=== PATIENT | female | born 1935 | race Two or more races ===

== ENCOUNTER 2020-06-29 11:58 | Inpatient (IN) | payer OTHER ==
[~2020-06-29] VITALS: Ht 170.2 cm; Wt 59.0 kg
[2020-06-29] MEDS ORDERED: VANCOMYCIN 1 G PREMIX 200 ML IV ONE (12:30)
[2020-06-29] MEDS ORDERED: CEFTRIAXONE 1 G PREMIX 50 ML IV ONE (12:30)
[2020-06-29] MEDS ORDERED: SODIUM CHLORIDE 0.9% 1000ML BAG (SEPSIS BOLUS) IV ONE (12:30)
[2020-06-29] MEDS ORDERED: ONDANSETRON HCL 4MG/2ML INJ IV STA (12:40)
[2020-06-29] MEDS ORDERED: MORPHINE SULFATE 4 MG/ML CPJ (NOT FOR IM USE) IV STA (12:40)
[2020-06-29 14:41] LABS: HEMATOCRIT. 53.3 % (36.0-48.0); HEMOGLOBIN. 16.9 g/dL (12.0-16.0); MEAN CORPUSCULAR HEMOGLOBIN 29.7 pg (28.0-32.0); MEAN CORPUSCULAR VOLUME 93.5 fL (81.0-99.0); MEAN PLATELET VOLUME 8.7 fl (7.4-10.4); PLATELET 176 x1000/uL (130-400); RED CELL DISTRIBUTION WIDTH 15.1 % (11.6-14.6)
[2020-06-29 14:47] LABS: CHLORIDE 124 mEq/L (98-107)
[2020-06-29 14:49] LABS: INR 1.3; PARTIAL THROMBOPLASTIN TIME 23.7 sec (23.4-31.0); PROTHROMBIN TIME 13.3 sec (9.6-11.0)
[2020-06-29 16:48] LABS: PLATELET ESTIMATE NORMAL
[2020-06-29 17:18] LABS: CLARITY URINE CLEAR (CLEAR); COLOR URINE DARK YELLOW (YELLOW); KETONES URINE NEGATIVE (NEGATIVE); LEUKOCYTE ESTERASE URINE NEGATIVE (NEGATIVE); NITRITE URINE NEGATIVE (NEGATIVE); OCCULT BLOOD URINE TRACE (NEGATIVE); PROTEIN URINE TRACE (NEGATIVE); SPECIFIC GRAVITY URINE 1.023 (1.005-1.030)
[2020-06-29 18:17] LABS: CREATINE KINASE 408 IU/L (26-192)
[2020-06-29] MEDS ORDERED: MORPHINE SULFATE 4 MG/ML CPJ (NOT FOR IM USE) IV PRN (23:00)
[2020-06-29] MEDS ORDERED: DIPHENHYDRAMINE 50MG/ML VIAL IV PRN (23:00)
[2020-06-29] MEDS ORDERED: IPRATROPIUM/ALBUTEROL 0.5-3(2.5)MG/3ML NEB HHN PRN (23:00)
[2020-06-29] MEDS ORDERED: GUAIFENESIN 200MG/10ML SUGAR FREE UDC PO PRN (23:00)
[2020-06-29] MEDS ORDERED: ACETAMINOPHEN 325MG TABLET PO PRN (23:00)
[2020-06-29] MEDS ORDERED: ONDANSETRON HCL 4MG/2ML INJ IV PRN (23:00)
[2020-06-30] MEDS ORDERED: DEXT 5% WATER + KCL 40MEQ/L 1,000 ML IV SCH
[2020-06-30] MEDS ORDERED: VANCOMYCIN 1 G PREMIX 200 ML IV NR
[2020-06-30] MEDS: DEXT 5%/0.45% NACL KCL 40MEQ/L 1,000 ML IV SCH ×3 (02:39→21:00)
[2020-06-30] MEDS: PIPERACILLIN/TAZOBACTAM 2.25 G in DEXTROSE 5% WATER 50 ML IV SCH ×2 (02:40→06:28)
[2020-06-30] MEDS: ENOXAPARIN 30MG/0.3ML SYR SUBCUT SCH (02:40)
[2020-06-30] MEDS ORDERED: FAMOTIDINE 20MG TABLET PO SCH (09:00)
[2020-06-30 11:47] LABS: HEMATOCRIT. 47.1 % (36.0-48.0); HEMOGLOBIN. 15.2 g/dL (12.0-16.0); MEAN CORPUSCULAR HEMOGLOBIN 30.2 pg (28.0-32.0); MEAN CORPUSCULAR VOLUME 93.5 fL (81.0-99.0); MEAN PLATELET VOLUME 8.7 fl (7.4-10.4); PLATELET 145 x1000/uL (130-400); RED BLOOD CELL COUNT 5.04 mill/uL (4.2-5.4)
[2020-06-30 11:53] LABS: CHLORIDE 133 mEq/L (98-107)
[2020-06-30 11:59] LABS: PHOSPHORUS 2.4 mg/dL (2.5-4.9)
[2020-06-30] MEDS ORDERED: PIPERACILLIN/TAZOBACTAM 2.25 G in DEXTROSE 5% WATER 50 ML IV SCH (12:00)
[2020-06-30 13:00] LABS: PLATELET ESTIMATE NORMAL
[2020-06-30] MEDS ORDERED: VANCOMYCIN 750 MG PREMIX 150 ML IV SCH ×2 (16:00)
[2020-06-30] MEDS ORDERED: CEFEPIME 1,000 MG in DEXTROSE 5% WATER 50 ML IV SCH (20:00)
[2020-06-30] MEDS ORDERED: METRONIDAZOLE 500 MG PREMIX 100 ML IV SCH (20:00)
[2020-07-01] VITALS (7 sets, daily range): BP systolic 105–164; BP diastolic 63–84
[2020-07-01] MEDS: ENOXAPARIN 30MG/0.3ML SYR SUBCUT SCH (01:16)
[2020-07-01 01:56] LABS: CREATINE KINASE 335 IU/L (26-192)
[2020-07-01] MEDS: METRONIDAZOLE 500 MG PREMIX 100 ML IV SCH ×3 (05:51→22:39)
[2020-07-01 10:22] LABS: BASOPHILS % 0.4 % (0.0-2.0); EOSINOPHILS % 1.5 % (0.0-5.0); HEMATOCRIT. 43.7 % (36.0-48.0); HEMOGLOBIN. 13.9 g/dL (12.0-16.0); LYMPHOCYTES % 11.9 % (20.0-50.0); MEAN CORPUSCULAR HEMOGLOBIN 29.8 pg (28.0-32.0); MEAN CORPUSCULAR VOLUME 93.4 fL (81.0-99.0); MEAN PLATELET VOLUME 9.5 fl (7.4-10.4); MONOCYTES % 4.9 % (2.0-8.0); NEUTROPHILS % 81.3 % (40.0-76.0); PLATELET 139 x1000/uL (130-400); RED BLOOD CELL COUNT 4.68 mill/uL (4.2-5.4); RED CELL DISTRIBUTION WIDTH 14.9 % (11.6-14.6)
[2020-07-01 10:35] LABS: CHLORIDE 131 mEq/L (98-107)
[2020-07-01 10:41] LABS: PHOSPHORUS 1.7 mg/dL (2.5-4.9)
[2020-07-01] MEDS: FAMOTIDINE 20MG TABLET PO SCH (12:26)
[2020-07-01] MEDS: DEXT 5%/0.45% NACL KCL 40MEQ/L 1,000 ML IV SCH ×3 (13:00→21:00)
[2020-07-01] MEDS ORDERED: POTASSIUM CHLORIDE 20MEQ TABLET SR PO NR (15:24)
[2020-07-01] MEDS ORDERED: VANCOMYCIN 750 MG PREMIX 150 ML IV SCH (16:00)
[2020-07-01] MEDS: CEFEPIME 1,000 MG in DEXTROSE 5% WATER 50 ML IV SCH (22:39)
[2020-07-02] VITALS: BP 132/59
[2020-07-02] MEDS: ENOXAPARIN 30MG/0.3ML SYR SUBCUT SCH (03:11)
[2020-07-02 04:00] VITALS: BP 145/98
[2020-07-02] MEDS: METRONIDAZOLE 500 MG PREMIX 100 ML IV SCH ×3 (05:12→22:32)
[2020-07-02] MEDS: DEXT 5%/0.45% NACL KCL 40MEQ/L 1,000 ML IV SCH ×3 (05:12→21:10)
[2020-07-02 08:00] VITALS: BP 164/91
[2020-07-02] MEDS: FAMOTIDINE 20MG TABLET PO SCH (09:13)
[2020-07-02] MEDS: CLONIDINE 0.1MG TABLET PO PRN (09:14)
[2020-07-02 12:00] VITALS: BP 158/68
[2020-07-02] MEDS: VANCOMYCIN 750 MG PREMIX 150 ML IV SCH (13:35)
[2020-07-02 16:00] VITALS: BP 98/71
[2020-07-02 20:00] VITALS: BP 129/79
[2020-07-02] MEDS: CEFEPIME 1,000 MG in DEXTROSE 5% WATER 50 ML IV SCH (21:12)
[2020-07-03] VITALS: BP 124/71
[2020-07-03] MEDS: ENOXAPARIN 30MG/0.3ML SYR SUBCUT SCH (00:21)
[2020-07-03 04:00] VITALS: BP 154/78
[2020-07-03] MEDS: DEXT 5%/0.45% NACL KCL 40MEQ/L 1,000 ML IV SCH ×2 (05:17→13:18)
[2020-07-03] MEDS: METRONIDAZOLE 500 MG PREMIX 100 ML IV SCH ×3 (05:18→21:23)
[2020-07-03] MEDS: VANCOMYCIN 750 MG PREMIX 150 ML IV SCH (05:18)
[2020-07-03 08:13] VITALS: BP 169/78
[2020-07-03] MEDS: FAMOTIDINE 20MG TABLET PO SCH (08:57)
[2020-07-03] MEDS: CLONIDINE 0.1MG TABLET PO PRN (08:57)
[2020-07-03 12:24] VITALS: BP 156/62
[2020-07-03] MEDS: DEXT 5% WATER + KCL 20MEQ/L 1,000 ML IV SCH (15:36)
[2020-07-03 16:00] VITALS: BP 146/66
[2020-07-03 17:46] LABS: HEMATOCRIT 39.5 % (36.0-48.0); MEAN CORPUSCULAR HEMOGLOBIN 30.5 pg (28.0-32.0); PLATELET 121 x1000/uL (130-400); RED BLOOD CELL COUNT 4.25 mill/uL (4.2-5.4); RED CELL DISTRIBUTION WIDTH 14.8 % (11.6-14.6)
[2020-07-03 19:58] VITALS: BP 143/63
[2020-07-03] MEDS: CEFEPIME 1,000 MG in DEXTROSE 5% WATER 50 ML IV SCH (20:31)
[2020-07-04] VITALS (7 sets, daily range): BP systolic 145–185; BP diastolic 27–82
[2020-07-04] MEDS: ENOXAPARIN 30MG/0.3ML SYR SUBCUT SCH ×2 (00:33→21:38)
[2020-07-04] MEDS: VANCOMYCIN 750 MG PREMIX 150 ML IV SCH ×2 (00:33→18:28)
[2020-07-04] MEDS: DEXT 5% WATER + KCL 20MEQ/L 1,000 ML IV SCH ×3 (03:48→14:34)
[2020-07-04] MEDS: METRONIDAZOLE 500 MG PREMIX 100 ML IV SCH ×3 (06:13→21:38)
[2020-07-04 07:00] LABS: BASOPHILS % 0.2 % (0.0-2.0); EOSINOPHILS % 2.9 % (0.0-5.0); HEMATOCRIT. 39.3 % (36.0-48.0); HEMOGLOBIN. 13.3 g/dL (12.0-16.0); LYMPHOCYTES % 10.7 % (20.0-50.0); MEAN CORPUSCULAR HEMOGLOBIN 31.1 pg (28.0-32.0); MEAN PLATELET VOLUME 8.9 fl (7.4-10.4); MONOCYTES % 5.5 % (2.0-8.0); NEUTROPHILS % 80.7 % (40.0-76.0); PLATELET 109 x1000/uL (130-400); RED BLOOD CELL COUNT 4.27 mill/uL (4.2-5.4); RED CELL DISTRIBUTION WIDTH 14.1 % (11.6-14.6)
[2020-07-04 07:14] LABS: CHLORIDE 116 mEq/L (98-107)
[2020-07-04] MEDS: FAMOTIDINE 20MG TABLET PO SCH (09:33)
[2020-07-04] MEDS ORDERED: LIDOCAINE HCL/EPINEPHRINE 1%-EPI 1:100,000 20 ML VIAL INFIL NR (15:30)
[2020-07-04] MEDS: SODIUM HYPOCHLORITE 0.125% 473ML SOLUTION TOP SCH (16:00)
[2020-07-04] MEDS: CLONIDINE 0.1MG TABLET PO PRN (16:33)
[2020-07-04 19:36] LABS: CLARITY URINE CLEAR (CLEAR); COLOR URINE YELLOW (YELLOW); KETONES URINE NEGATIVE (NEGATIVE); LEUKOCYTE ESTERASE URINE TRACE (NEGATIVE); NITRITE URINE NEGATIVE (NEGATIVE); OCCULT BLOOD URINE 2+ (NEGATIVE); PH URINE 5.5 (4.5-8.0); PROTEIN URINE TRACE (NEGATIVE); UROBILINOGEN URINE 0.2 E.U./dL (0.2-1.0)
[2020-07-04] MEDS: CEFEPIME 1,000 MG in DEXTROSE 5% WATER 50 ML IV SCH (21:38)
[2020-07-05] VITALS: BP 149/60
[2020-07-05] MEDS: CLONIDINE 0.1MG TABLET PO PRN (00:39)
[2020-07-05 04:00] VITALS: BP 145/71
[2020-07-05] MEDS: METRONIDAZOLE 500 MG PREMIX 100 ML IV SCH ×3 (06:06→22:34)
[2020-07-05 07:20] LABS: BASOPHILS % 0.4 % (0.0-2.0); EOSINOPHILS % 2.7 % (0.0-5.0); HEMATOCRIT. 37.4 % (36.0-48.0); HEMOGLOBIN. 12.7 g/dL (12.0-16.0); MEAN CORPUSCULAR HEMOGLOBIN 30.8 pg (28.0-32.0); MEAN PLATELET VOLUME 8.6 fl (7.4-10.4); MONOCYTES % 6.9 % (2.0-8.0); PLATELET 115 x1000/uL (130-400); RED BLOOD CELL COUNT 4.11 mill/uL (4.2-5.4); RED CELL DISTRIBUTION WIDTH 14.3 % (11.6-14.6)
[2020-07-05 07:34] LABS: CHLORIDE 115 mEq/L (98-107)
[2020-07-05 08:00] VITALS: BP 150/72
[2020-07-05] MEDS: SODIUM HYPOCHLORITE 0.125% 473ML SOLUTION TOP SCH (09:00)
[2020-07-05] MEDS: FAMOTIDINE 20MG TABLET PO SCH (09:13)
[2020-07-05 12:00] VITALS: BP 152/80
[2020-07-05] MEDS: VANCOMYCIN 1 G PREMIX 200 ML IV SCH (12:50)
[2020-07-05 16:00] VITALS: BP 158/82
[2020-07-05 20:00] VITALS: BP 141/91
[2020-07-05] MEDS: CEFEPIME 1,000 MG in DEXTROSE 5% WATER 50 ML IV SCH (20:45)
[2020-07-05] MEDS: ENOXAPARIN 30MG/0.3ML SYR SUBCUT SCH (20:45)
[2020-07-05] MEDS: LORAZEPAM 2MG/ML CPJ IV PRN (21:39)
[2020-07-06] VITALS: BP 149/72
[2020-07-06 04:00] VITALS: BP 158/80
[2020-07-06] MEDS: VANCOMYCIN 1 G PREMIX 200 ML IV SCH ×2 (05:19→23:37)
[2020-07-06 08:00] VITALS: BP 186/82
[2020-07-06] MEDS: FAMOTIDINE 20MG TABLET PO SCH (08:30)
[2020-07-06] MEDS: ACETAMINOPHEN 325MG TABLET PO PRN (08:31)
[2020-07-06] MEDS: SODIUM HYPOCHLORITE 0.125% 473ML SOLUTION TOP SCH (09:00)
[2020-07-06 12:00] VITALS: BP 180/75
[2020-07-06 16:00] VITALS: BP 165/80
[2020-07-06] MEDS: CLONIDINE 0.1MG TABLET PO PRN (17:12)
[2020-07-06 20:00] VITALS: BP 169/75
[2020-07-06] MEDS: ENOXAPARIN 30MG/0.3ML SYR SUBCUT SCH (20:28)
[2020-07-06] MEDS: METOPROLOL TARTRATE 25MG TABLET PO SCH (20:28)
[2020-07-06] MEDS: LORAZEPAM 2MG/ML CPJ IV PRN (20:28)
[2020-07-07] VITALS: BP 101/47
[2020-07-07 04:00] VITALS: BP 176/70
[2020-07-07 07:53] LABS: BASOPHILS % 0.4 % (0.0-2.0); EOSINOPHILS % 3.5 % (0.0-5.0); HEMATOCRIT. 37.3 % (36.0-48.0); HEMOGLOBIN. 12.4 g/dL (12.0-16.0); LYMPHOCYTES % 12.7 % (20.0-50.0); MEAN CORPUSCULAR HEMOGLOBIN 30.3 pg (28.0-32.0); MEAN CORPUSCULAR VOLUME 91.1 fL (81.0-99.0); MEAN PLATELET VOLUME 8.9 fl (7.4-10.4); MONOCYTES % 7.4 % (2.0-8.0); PLATELET 151 x1000/uL (130-400); RED CELL DISTRIBUTION WIDTH 14.6 % (11.6-14.6)
[2020-07-07 08:00] VITALS: BP 154/72
[2020-07-07 08:23] LABS: CHLORIDE 115 mEq/L (98-107)
[2020-07-07 08:29] LABS: PHOSPHORUS 2.1 mg/dL (2.5-4.9)
[2020-07-07] MEDS: SODIUM HYPOCHLORITE 0.125% 473ML SOLUTION TOP SCH (09:17)
[2020-07-07] MEDS: FAMOTIDINE 20MG TABLET PO SCH (09:17)
[2020-07-07] MEDS: METOPROLOL TARTRATE 25MG TABLET PO SCH (09:20)
[2020-07-07] MEDS: ACETAMINOPHEN 325MG TABLET PO PRN (11:15)
[2020-07-07 12:00] VITALS: BP 176/79
[2020-07-07] MEDS ORDERED: MAGNESIUM 2 G PREMIX 50 ML IV NR (12:00)
[2020-07-07 16:00] VITALS: BP 173/59
[2020-07-07] MEDS ORDERED: POTASSIUM PHOS,M-BASIC-D-BASIC 30 MMOL in DEXT 5% WATER 500 ML IV NR (16:30)
[2020-07-07] MEDS: VANCOMYCIN 1 G PREMIX 200 ML IV SCH (18:15)
[2020-07-07 20:00] VITALS: BP 175/66
[2020-07-07] MEDS: ENOXAPARIN 30MG/0.3ML SYR SUBCUT SCH (21:22)
[2020-07-07] MEDS: METOPROLOL TARTRATE 50MG TABLET PO SCH (21:23)
[2020-07-08] VITALS: BP 189/77
[2020-07-08 04:00] VITALS: BP 189/79
[2020-07-08 08:00] VITALS: BP 183/77
[2020-07-08] MEDS: METOPROLOL TARTRATE 50MG TABLET PO SCH ×2 (09:25→22:52)
[2020-07-08] MEDS: FAMOTIDINE 20MG TABLET PO SCH (09:25)
[2020-07-08] MEDS: SODIUM HYPOCHLORITE 0.125% 473ML SOLUTION TOP SCH (09:26)
[2020-07-08] MEDS: VANCOMYCIN 1 G PREMIX 200 ML IV SCH ×2 (11:54→12:00)
[2020-07-08 12:00] VITALS: BP 166/74
[2020-07-08] MEDS: AMLODIPINE 2.5MG TABLET PO SCH (12:48)
[2020-07-08 16:00] VITALS: BP 173/110
[2020-07-08 17:26] LABS: CHLORIDE 109 mEq/L (98-107)
[2020-07-08] MEDS: CLONIDINE 0.1MG TABLET PO PRN (18:26)
[2020-07-08 20:00] VITALS: BP 127/58
[2020-07-08] MEDS: ENOXAPARIN 30MG/0.3ML SYR SUBCUT SCH (22:53)
[2020-07-09] VITALS: BP 162/69
[2020-07-09 04:00] VITALS: BP 155/71
[2020-07-09 07:30] LABS: BASOPHILS % 0.7 % (0.0-2.0); EOSINOPHILS % 3.7 % (0.0-5.0); HEMATOCRIT. 36.5 % (36.0-48.0); HEMOGLOBIN. 12.2 g/dL (12.0-16.0); LYMPHOCYTES % 18.8 % (20.0-50.0); MEAN CORPUSCULAR HEMOGLOBIN 30.4 pg (28.0-32.0); MEAN CORPUSCULAR VOLUME 90.8 fL (81.0-99.0); MEAN PLATELET VOLUME 8.5 fl (7.4-10.4); MONOCYTES % 8.6 % (2.0-8.0); NEUTROPHILS % 68.2 % (40.0-76.0); PLATELET 170 x1000/uL (130-400); RED BLOOD CELL COUNT 4.02 mill/uL (4.2-5.4); RED CELL DISTRIBUTION WIDTH 14.7 % (11.6-14.6)
[2020-07-09 08:00] VITALS: BP 115/70
[2020-07-09 08:28] LABS: CHLORIDE 110 mEq/L (98-107)
[2020-07-09 08:35] LABS: PHOSPHORUS 2.6 mg/dL (2.5-4.9)
[2020-07-09] MEDS: METOPROLOL TARTRATE 50MG TABLET PO SCH ×2 (09:00→21:22)
[2020-07-09] MEDS: AMLODIPINE 2.5MG TABLET PO SCH (09:00)
[2020-07-09] MEDS: FAMOTIDINE 20MG TABLET PO SCH (09:58)
[2020-07-09] MEDS: SODIUM HYPOCHLORITE 0.125% 473ML SOLUTION TOP SCH (09:59)
[2020-07-09 12:00] VITALS: BP 142/64
[2020-07-09] MEDS ORDERED: POTASSIUM CHLORIDE 20MEQ TABLET SR PO NR (12:15)
[2020-07-09 16:00] VITALS: BP 168/78
[2020-07-09] MEDS: CLONIDINE 0.1MG TABLET PO PRN (17:03)
[2020-07-09 20:00] VITALS: BP 128/57
[2020-07-09] MEDS: ENOXAPARIN 30MG/0.3ML SYR SUBCUT SCH (21:23)
[2020-07-10] VITALS: BP 151/66
[2020-07-10 04:00] VITALS: BP 144/60
[2020-07-10] MEDS: ACETAMINOPHEN 325MG TABLET PO PRN (06:30)
[2020-07-10 08:00] VITALS: BP 148/75
[2020-07-10] MEDS: FAMOTIDINE 20MG TABLET PO SCH (09:46)
[2020-07-10] MEDS: METOPROLOL TARTRATE 50MG TABLET PO SCH ×2 (09:46→22:07)
[2020-07-10] MEDS: AMLODIPINE 2.5MG TABLET PO SCH (09:47)
[2020-07-10] MEDS: SODIUM HYPOCHLORITE 0.125% 473ML SOLUTION TOP SCH (09:50)
[2020-07-10 12:00] VITALS: BP 139/118
[2020-07-10] MEDS: CLONIDINE 0.1MG TABLET PO PRN (15:27)
[2020-07-10 16:00] VITALS: BP 91/70
[2020-07-10] MEDS ORDERED: POTASSIUM CHLORIDE 20MEQ/PACKET PO NR (17:00)
[2020-07-10 20:00] VITALS: BP 137/62
[2020-07-10] MEDS: ENOXAPARIN 30MG/0.3ML SYR SUBCUT SCH (21:00)
[2020-07-11] VITALS: BP 159/66
[2020-07-11 04:00] VITALS: BP 158/61
[2020-07-11] MEDS: ACETAMINOPHEN 325MG TABLET PO PRN ×2 (04:37→12:04)
[2020-07-11 07:56] LABS: BASOPHILS % 0.9 % (0.0-2.0); EOSINOPHILS % 4.9 % (0.0-5.0); HEMATOCRIT. 35.5 % (36.0-48.0); HEMOGLOBIN. 11.9 g/dL (12.0-16.0); LYMPHOCYTES % 21.2 % (20.0-50.0); MEAN CORPUSCULAR HEMOGLOBIN 30.3 pg (28.0-32.0); MEAN CORPUSCULAR VOLUME 90.6 fL (81.0-99.0); MEAN PLATELET VOLUME 8.2 fl (7.4-10.4); MONOCYTES % 8.7 % (2.0-8.0); NEUTROPHILS % 64.3 % (40.0-76.0); PLATELET 173 x1000/uL (130-400); RED BLOOD CELL COUNT 3.91 mill/uL (4.2-5.4); RED CELL DISTRIBUTION WIDTH 14.6 % (11.6-14.6)
[2020-07-11 08:00] VITALS: BP 177/74
[2020-07-11 08:01] LABS: CHLORIDE 107 mEq/L (98-107)
[2020-07-11 08:07] LABS: PHOSPHORUS 2.6 mg/dL (2.5-4.9)
[2020-07-11] MEDS: SODIUM HYPOCHLORITE 0.125% 473ML SOLUTION TOP SCH (09:00)
[2020-07-11] MEDS: AMLODIPINE 2.5MG TABLET PO SCH (09:08)
[2020-07-11] MEDS: METOPROLOL TARTRATE 50MG TABLET PO SCH ×2 (09:08→20:55)
[2020-07-11] MEDS: FAMOTIDINE 20MG TABLET PO SCH (09:08)
[2020-07-11 12:00] VITALS: BP 134/63
[2020-07-11] MEDS: MAGNESIUM OXIDE 400MG TABLET PO SCH (12:04)
[2020-07-11 16:00] VITALS: BP 156/65
[2020-07-11 20:00] VITALS: BP 160/68
[2020-07-11] MEDS: ENOXAPARIN 30MG/0.3ML SYR SUBCUT SCH (20:55)
[2020-07-11] MEDS: DIPHENHYDRAMINE 25MG CAPSULE PO PRN (22:28)
[2020-07-12] VITALS: BP 156/86
[2020-07-12 04:00] VITALS: BP 176/66
[2020-07-12 08:00] VITALS: BP 190/63
[2020-07-12] MEDS: SODIUM HYPOCHLORITE 0.125% 473ML SOLUTION TOP SCH (09:00)
[2020-07-12] MEDS: FAMOTIDINE 20MG TABLET PO SCH (09:00)
[2020-07-12] MEDS: MAGNESIUM OXIDE 400MG TABLET PO SCH (09:06)
[2020-07-12] MEDS: METOPROLOL TARTRATE 50MG TABLET PO SCH ×2 (09:06→21:14)
[2020-07-12] MEDS: AMLODIPINE 2.5MG TABLET PO SCH (09:07)
[2020-07-12 12:00] VITALS: BP 152/65
[2020-07-12 16:00] VITALS: BP 166/67
[2020-07-12 20:00] VITALS: BP 133/77
[2020-07-12] MEDS: ENOXAPARIN 30MG/0.3ML SYR SUBCUT SCH (21:14)
[2020-07-12] MEDS: DIPHENHYDRAMINE 25MG CAPSULE PO PRN (21:14)
[2020-07-13] VITALS: BP 140/65
[2020-07-13 04:00] VITALS: BP 178/78
[2020-07-13] MEDS: CLONIDINE 0.1MG TABLET PO PRN (05:20)
[2020-07-13 08:00] VITALS: BP 130/18
[2020-07-13] MEDS: METOPROLOL TARTRATE 50MG TABLET PO SCH ×2 (09:22→21:34)
[2020-07-13] MEDS: FAMOTIDINE 20MG TABLET PO SCH (09:22)
[2020-07-13] MEDS: AMLODIPINE 2.5MG TABLET PO SCH (09:22)
[2020-07-13] MEDS: SODIUM HYPOCHLORITE 0.125% 473ML SOLUTION TOP SCH (09:22)
[2020-07-13] MEDS: MAGNESIUM OXIDE 400MG TABLET PO SCH (09:22)
[2020-07-13 12:00] VITALS: BP 136/67
[2020-07-13 16:00] VITALS: BP 161/75
[2020-07-13 20:00] VITALS: BP 155/74
[2020-07-13] MEDS: ENOXAPARIN 30MG/0.3ML SYR SUBCUT SCH (21:34)
[2020-07-14] VITALS: BP 155/72
[2020-07-14 04:00] VITALS: BP 155/78
[2020-07-14 08:00] VITALS: BP 160/74
[2020-07-14] MEDS: MAGNESIUM OXIDE 400MG TABLET PO SCH (08:50)
[2020-07-14] MEDS: AMLODIPINE 2.5MG TABLET PO SCH (08:50)
[2020-07-14] MEDS: FAMOTIDINE 20MG TABLET PO SCH (08:50)
[2020-07-14] MEDS: METOPROLOL TARTRATE 50MG TABLET PO SCH (08:55)
[2020-07-14] MEDS: SODIUM HYPOCHLORITE 0.125% 473ML SOLUTION TOP SCH (09:04)
[2020-07-14 12:00] VITALS: BP 150/81
[2020-07-14 13:37] VITALS: BP 150/81
[2020-07-14] MEDS: CLONIDINE 0.1MG TABLET PO PRN (17:08)
[2020-07-14] MEDS ORDERED: LOSARTAN POTASSIUM 50 MG TABLET PO SCH (17:28)
== END 2020-07-14 18:23 | DRG 853 ==
LOC: ER 11:58 → MICUSO 17:53 → EDBEDREQ 18:06 → 6WST 06-30 08:24 → MICUSO 06-30 11:12 → 6WST 06-30 21:34 → 5WST 07-04 17:32 → 6EST 07-09 17:51
PROVIDERS: ADMIT Internal Medicine; ATTEND Internal Medicine
PROC: 0KBN0ZZ Excision of Right Hip Muscle, Open Approach (ICD-10-PCS; principal; 2020-06-29)
PROC: 0HBRXZZ Excision of Toe Nail, External Approach (ICD-10-PCS; 2020-07-05)
PROC: 0HBRXZZ Excision of Toe Nail, External Approach (ICD-10-PCS; 2020-07-05)
PROC: 0HBRXZZ Excision of Toe Nail, External Approach (ICD-10-PCS; 2020-07-05)
PROC: 0HBRXZZ Excision of Toe Nail, External Approach (ICD-10-PCS; 2020-07-05)
PROC: 0HBRXZZ Excision of Toe Nail, External Approach (ICD-10-PCS; 2020-07-05)
PROC: 0HBRXZZ Excision of Toe Nail, External Approach (ICD-10-PCS; 2020-07-05)
PROC: 0HBRXZZ Excision of Toe Nail, External Approach (ICD-10-PCS; 2020-07-05)
PROC: 0HBRXZZ Excision of Toe Nail, External Approach (ICD-10-PCS; 2020-07-05)
PROC: 0HBRXZZ Excision of Toe Nail, External Approach (ICD-10-PCS; 2020-07-05)
PROC: 0HBRXZZ Excision of Toe Nail, External Approach (ICD-10-PCS; 2020-07-05)
DX: A41.9 Sepsis, unspecified organism (principal); L89.313 Pressure ulcer of right buttock, stage 3; L89.214 Pressure ulcer of right hip, stage 4; G93.41 Metabolic encephalopathy; N17.9 Acute kidney failure, unspecified; E87.0 Hyperosmolality and hypernatremia; E46 Unspecified protein-calorie malnutrition; I67.82 Cerebral ischemia; E86.0 Dehydration; F03.90 Unspecified dementia, unspecified severity, without behavioral disturbance, psychotic disturbance, mood disturbance, and anxiety; B35.1 Tinea unguium; L60.2 Onychogryphosis; M79.675 Pain in left toe(s); M79.674 Pain in right toe(s); I73.9 Peripheral vascular disease, unspecified; L85.3 Xerosis cutis; I10 Essential (primary) hypertension; M47.892 Other spondylosis, cervical region; S30.0XXA Contusion of lower back and pelvis, initial encounter; X58.XXXA Exposure to other specified factors, initial encounter; Z20.828 Contact with and (suspected) exposure to other viral communicable diseases; R65.20 Severe sepsis without septic shock; Z68.20 Body mass index [BMI] 20.0-20.9, adult; Z79.899 Other long term (current) drug therapy; Y93.89 Activity, other specified; Y92.89 Other specified places as the place of occurrence of the external cause; Y99.8 Other external cause status
CPT/HCPCS: 36415; 71045; 73502; 73552; 80048; 80053; 80202; 81003; 82550; 83605; 83735; 83880; 84100; 84145; 84484; 85025; 85027; 93005; 93923; 97110; 97162; 97166; 97530; 97535; 99291; C1893; J0692; J0696; J1200; J1650; J2060; J2270; J2405; J2543; J3370; J3475; J3490; J7030; J7040; J7060; Q0163; U0003